=== PATIENT | male | born 1945 | race Caucasian/White ===

== ENCOUNTER → 2017-07-12 | Outpatient (CLI) | payer MEDICARE ==
[~2017-07-12] MED LIST: ADVIL200 MG PO; ASPIRIN LO-DOSE81 MG PO; CPAP INH; FISH OIL1000 MG PO; METAMUCIL PACKE1 PKT PO; MULTI VITAMIN1 EACH PO; OTC ACID REDUCER PO; OXYGEN M-15 INH; PROZAC20 MG PO; STOOL SOFTENER100 M1 PO; TOPROL XL25 MG PO; VASOTEC5 MG PO; VITAMIN D1000 UNIT PO; ZINC PO
[2017-07-12 10:01] LABS: ALBUMIN 3.2 gm/dL (3.5-5.0); TOTAL BILIRUBIN 0.8 mg/dL (0.0-1.5); TOTAL PROTEIN 6.7 g/dL (6.0-8.4)
== END ==
LOC: LNHI 09:41
PROVIDERS: Internal Medicine Interventional Cardiology
DX: E66.9 Obesity, unspecified (principal); I10 Essential (primary) hypertension; I25.10 Atherosclerotic heart disease of native coronary artery without angina pectoris